=== PATIENT | male | born 1950 | race Caucasian/White ===

== ENCOUNTER 2024-04-05 21:45 | Inpatient (IN) | payer MEDICARE, MEDICAID ==
[~2024-04-05] VITALS: Ht 177.8 cm; Wt 84.4 kg
[2024-04-05 21:50] VITALS: PULSE 114; RESP 22; O2SAT 97
[2024-04-05] MEDS ORDERED: 0.9% SODIUM CHLORIDE 10 ML SYRINGE IVP PRN (22:00)
[2024-04-05 22:11] LABS: BASOPHILS % (AUTO) 0.2 % (0.0-2.0); EOSINOPHILS % (AUTO) 1.1 % (1.0-6.0); HEMATOCRIT 42.3 % (41-53); HEMOGLOBIN 13.7 g/dL (13.5-17.5); LYMPHOCYTES # (AUTO) 2.5 K/uL (1.0-4.8); LYMPHOCYTES % (AUTO) 20.8 % (22.0-44.0); MEAN CORPUSCULAR HEMOGLOBIN 28.3 pg (26.0-34.0); MEAN CORPUSCULAR HGB CONC 32.3 G/dL (31.0-37.0); MEAN CORPUSCULAR VOLUME 88 fL (80-100); MONOCYTES # (AUTO) 0.6 K/uL (0.1-1.0); NEUTROPHILS % (AUTO) 72.9 % (40.0-70.0); PLATELET COUNT (AUTO) 158 K/uL (150-450); RED BLOOD CELL COUNT(AUTO) 4.83 MIL/uL (4.50-5.90); RED CELL DISTRIBUTION WIDTH 15.7 % (11.5-14.5); WHITE BLOOD COUNT (AUTO) 12.3 K/uL (4.5-11.0)
[2024-04-05 22:13] LABS: COVID AG,FIA SOURCE NASAL SWAB
[2024-04-05] MEDS ORDERED: ONDANSETRON HCL 4 MG/2 ML VIAL IVP PRN (22:15)
[2024-04-05 22:18] LABS: ANION GAP 8 mmol/L (8-16); CALCIUM, TOTAL 8.8 mg/dL (8.8-10.5); CARBON DIOXIDE 31 mmol/L (22-29); CHLORIDE 105 mmol/L (98-107); CREATININE 1.04 mg/dL (0.60-1.30); GLOMERULAR FILTR. RATE CALC > 60 mL/min (>60); GLUCOSE,RANDOM 133 mg/dL (70-110); POTASSIUM 4.1 mmol/L (3.5-5.1); SODIUM SERUM 144 mmol/L (136-145); UREA NITROGEN, BLOOD 18 mg/dL (7-18)
[2024-04-05 22:22] LABS: PROTHROMBIN TIME 16.7 SEC (9.4-11.6)
[2024-04-05 22:25] LABS: ALANINE AMINOTRANSFERASE 15 U/L (12-78); ALBUMIN 3.2 g/dL (3.4-5.0); ALKALINE PHOSPHATASE 88 U/L (46-116); ASPARTATE AMINOTRANSFERASE 16 U/L (15-37); BILIRUBIN,TOTAL 0.5 mg/dL (0.1-1.0); TOTAL PROTEIN, SERUM 7.8 g/dL (6.4-8.2)
[2024-04-05 22:26] LABS: TROPONIN I-HIGH SENSITIVITY 7 ng/L (<76)
[2024-04-05] MEDS: SODIUM CHLORIDE 0.9% 2,350 ML IV ONE (22:27)
[2024-04-05] MEDS: CefTRIAXone 1 GM/DEXTROSE 50 ML IV ONE (22:28)
[2024-04-05 22:37] LABS: SARS-COV2 (COVID) ANTIGEN,FIA Negative (Negative)
[2024-04-05 22:40] LABS: INFLUENZA TYPE A NEGATIVE FOR TYPE A (NEGATIVE); INFLUENZA TYPE B NEGATIVE FOR TYPE B (NEGATIVE)
[2024-04-05 22:41] LABS: B-TYPE NATRIURETIC PEPTIDE 37 pg/mL (0-100)
[2024-04-05] MEDS: ACETAMINOPHEN 325 MG TABLET PO PRN (23:11)
[2024-04-05 23:12] LABS: ABG BASE EXCESS -1.2 mmol/L (-2.0-3.0); ABG CARBOXYHEMOGLOBIN 0.3 % (0.5-1.5); ABG HCO3 23.7 mmol/L (21.0-28.0); ABG METHEMOGLOBIN 0.1 % (0.0-1.5); ABG OXYGEN CONTENT 18.6 mL/dL (15.0-23.0); ABG OXYGEN SATURATION 99.3 % (94.0-98.0); ABG OXYHEMOGLOBIN 98.9 % (94.0-98.0); ABG PCO2 45 mmHg (32.0-48.0); ABG PH 7.355 (7.350-7.450); ABG TOTAL HEMOGLOBIN 13.1 G/dL (13.5-17.5); ALLEN TEST, BLOOD GAS Positive; PO2, ARTERIAL BG 189.9 mmHg (83.0-108.0); SITE, BLOOD GAS LFT RADIAL; SOURCE, BLOOD GAS ARTERIAL; TEMPERATURE, FAHRENHEIT, BG 103.1 FAHREN (96.0-98.6)
[2024-04-05 23:13] LABS: ABG A-A DIFF O2 256.3 mmHg (10-20.0); INSPIRATORY TIME, BG 0.9 SEC; O2 DEVICE,BLOOD GAS BIPAP (ROOM AIR)
[2024-04-05] MEDS: ALBUTEROL SULFATE 2.5 MG/0.5 ML NEB SOLUTION NEB ONE (23:26)
[2024-04-05] MEDS: IPRATROPIUM BROMIDE 0.5 MG/2.5 ML NEB SOLUTION NEB ONE (23:27)
[2024-04-05 23:30] VITALS: PULSE 101; RESP 21; O2SAT 97
[2024-04-05 23:45] VITALS: PULSE 113; RESP 24; O2SAT 97
[2024-04-06] VITALS (23 sets, daily range): BP systolic 97–153; BP diastolic 57–81; PULSE 44–129; RESP 16–36; TEMP 97.6–100; O2SAT 84–100
[2024-04-06] MEDS: HEPARIN SODIUM,PORCINE 5,000 UNITS/ML VIAL SQ SCH (00:14)
[2024-04-06] MEDS: VANCOMYCIN 1.5 GM/WATER(PEG) 300 ML IV ONE (00:15)
[2024-04-06] MEDS: MORPHINE SULFATE 4 MG/ML SYRINGE IVP ONE (00:52)
[2024-04-06] MEDS: ASPIRIN 300 MG RECTAL SUPPOSITORY PR ONE (00:52)
[2024-04-06] MEDS ORDERED: SODIUM CHLORIDE 0.9% 500 ML IV ONE ×2 (04:52→15:14)
[2024-04-06] MEDS: PIPERACILLIN/TAZO 3.375 GM/D5W 50 ML IV SCH (04:55)
[2024-04-06] MEDS ORDERED: INFLUENZA VIRUS VACCINE TVS (6MO+) 2024-25/PF 45 MCG/0.5 ML SYRINGE IM. ONE (06:30)
[2024-04-06 06:52] LABS: HEMATOCRIT 35.6 % (41-53); HEMOGLOBIN 11.7 g/dL (13.5-17.5); MEAN CORPUSCULAR HEMOGLOBIN 28.5 pg (26.0-34.0); MEAN CORPUSCULAR HGB CONC 32.8 G/dL (31.0-37.0); MEAN CORPUSCULAR VOLUME 87 fL (80-100); PLATELET COUNT (AUTO) 139 K/uL (150-450); RED CELL DISTRIBUTION WIDTH 15.5 % (11.5-14.5); WHITE BLOOD COUNT (AUTO) 13.1 K/uL (4.5-11.0)
[2024-04-06 07:21] LABS: ANION GAP 9 mmol/L (8-16); CALCIUM, TOTAL 7.8 mg/dL (8.8-10.5); CARBON DIOXIDE 26 mmol/L (22-29); CHLORIDE 107 mmol/L (98-107); CREATININE 0.97 mg/dL (0.60-1.30); GLOMERULAR FILTR. RATE CALC > 60 mL/min (>60); GLUCOSE,RANDOM 144 mg/dL (70-110); POTASSIUM 3.8 mmol/L (3.5-5.1); SODIUM SERUM 142 mmol/L (136-145); UREA NITROGEN, BLOOD 18 mg/dL (7-18)
[2024-04-06 07:24] LABS: BAND NEUTROPHILS % (MANUAL) 14 % (0-5); LYMPHOCYTES % (MANUAL) 6 % (22-44); MONOCYTES % (MANUAL) 4 % (2-9); SEGMENTED NEUTROPHILS % 76 % (40-70); TOTAL CELLS COUNTED 100
[2024-04-06] MEDS: VANCOMYCIN 1GM/WATER(PEG/NADA) 200 ML IV SCH (09:25)
[2024-04-06] MEDS ORDERED: SODIUM CHLORIDE 0.9% 250 ML IV ONE (10:30)
[2024-04-06] MEDS: MethylPREDNISolone SOD SUCC 125 MG/2 ML VIAL IVP SCH (12:39)
[2024-04-06] MEDS: ALBUTEROL SULFATE 2.5 MG/0.5 ML NEB SOLUTION NEB PRN (12:44)
[2024-04-06] MEDS: IPRATROPIUM BROMIDE 0.5 MG/2.5 ML NEB SOLUTION NEB PRN (12:44)
[2024-04-06] MEDS ORDERED: IPRATROPIUM BROMIDE 0.5 MG/2.5 ML NEB SOLUTION NEB PRN (12:45)
[2024-04-06] MEDS: MORPHINE SULFATE 2 MG/ML SYRINGE IVP ONE (13:05)
[2024-04-06 13:13] LABS: ABG BASE EXCESS -5.6 mmol/L (-2.0-3.0); ABG CARBOXYHEMOGLOBIN 0.6 % (0.5-1.5); ABG HCO3 17.5 mmol/L (21.0-28.0); ABG METHEMOGLOBIN 0.1 % (0.0-1.5); ABG OXYGEN CONTENT 17.7 mL/dL (15.0-23.0); ABG OXYGEN SATURATION 90.1 % (94.0-98.0); ABG OXYHEMOGLOBIN 89.5 % (94.0-98.0); PO2, ARTERIAL BG 79.4 mmHg (83.0-108.0); SOURCE, BLOOD GAS ARTERIAL; TEMPERATURE, FAHRENHEIT, BG 98.2 FAHREN (96.0-98.6)
[2024-04-06 13:15] LABS: ABG PCO2 118 mmHg (32.0-48.0); ABG PH 6.963 (7.350-7.450)
[2024-04-06 13:16] LABS: ABG A-A DIFF O2 515.9 mmHg (10-20.0); ALLEN TEST, BLOOD GAS Positive; O2 DEVICE,BLOOD GAS BIPAP (ROOM AIR); SITE, BLOOD GAS LFT RADIAL; SPONTANEOUS VT, BG 233 ml
[2024-04-06] MEDS: LORazepam 2 MG/ML VIAL IVP ONE (13:31)
[2024-04-06] MEDS: IPRATROPIUM BROMIDE 0.5 MG/2.5 ML NEB SOLUTION NEB SCH (13:50)
[2024-04-06] MEDS: ALBUTEROL SULFATE 2.5 MG/0.5 ML NEB SOLUTION NEB SCH (13:50)
[2024-04-06 16:05] LABS: ABG BASE EXCESS -5.4 mmol/L (-2.0-3.0); ABG CARBOXYHEMOGLOBIN 0.7 % (0.5-1.5); ABG HCO3 20.3 mmol/L (21.0-28.0); ABG METHEMOGLOBIN 0.3 % (0.0-1.5); ABG OXYGEN CONTENT 17.5 mL/dL (15.0-23.0); ABG OXYGEN SATURATION 98.1 % (94.0-98.0); ABG OXYHEMOGLOBIN 97.1 % (94.0-98.0); ABG PCO2 41 mmHg (32.0-48.0); ABG PH 7.324 (7.350-7.450); ABG TOTAL HEMOGLOBIN 12.7 G/dL (13.5-17.5); PO2, ARTERIAL BG 103.9 mmHg (83.0-108.0); SITE, BLOOD GAS LFT RADIAL; SOURCE, BLOOD GAS ARTERIAL; TEMPERATURE, FAHRENHEIT, BG 98.1 FAHREN (96.0-98.6)
[2024-04-06 16:06] LABS: ABG A-A DIFF O2 569.3 mmHg (10-20.0); ALLEN TEST, BLOOD GAS Positive; O2 DEVICE,BLOOD GAS BIPAP (ROOM AIR)
[2024-04-06] MEDS: DEXMEDETOMIDINE HCL 400 MCG in SODIUM CHLORIDE 0.9% 96 ML IV PRN (17:02)
[2024-04-07] VITALS (21 sets, daily range): BP systolic 108–136; BP diastolic 55–83; PULSE 45–64; RESP 16–27; TEMP 97.4–98.5; O2SAT 94–100
[2024-04-07 05:53] LABS: EOSINOPHILS % (AUTO) 0 % (1.0-6.0); HEMATOCRIT 37.6 % (41-53); HEMOGLOBIN 12.5 g/dL (13.5-17.5); LYMPHOCYTES # (AUTO) 0.4 K/uL (1.0-4.8); LYMPHOCYTES % (AUTO) 4.7 % (22.0-44.0); MEAN CORPUSCULAR HGB CONC 33.4 G/dL (31.0-37.0); MEAN CORPUSCULAR VOLUME 87 fL (80-100); MONOCYTES # (AUTO) 0.2 K/uL (0.1-1.0); MONOCYTES % (AUTO) 2.4 % (2.0-9.0); NEUTROPHILS # (AUTO) 7.7 K/uL (1.8-7.7); PLATELET COUNT (AUTO) 123 K/uL (150-450); RED BLOOD CELL COUNT(AUTO) 4.33 MIL/uL (4.50-5.90); RED CELL DISTRIBUTION WIDTH 15.6 % (11.5-14.5); WHITE BLOOD COUNT (AUTO) 8.3 K/uL (4.5-11.0)
[2024-04-07 05:57] LABS: NEUTROPHILS % (AUTO) 92.9 % (40.0-70.0)
[2024-04-07 06:12] LABS: ANION GAP 10 mmol/L (8-16); CALCIUM, TOTAL 8.9 mg/dL (8.8-10.5); CARBON DIOXIDE 25 mmol/L (22-29); CHLORIDE 108 mmol/L (98-107); CREATININE 1.08 mg/dL (0.60-1.30); GLOMERULAR FILTR. RATE CALC > 60 mL/min (>60); GLUCOSE,RANDOM 206 mg/dL (70-110); POTASSIUM 3.9 mmol/L (3.5-5.1); SODIUM SERUM 143 mmol/L (136-145); UREA NITROGEN, BLOOD 22 mg/dL (7-18)
[2024-04-07 06:14] LABS: VANCOMYCIN,RANDOM 19.7 mcg/mL (25.0-50.0)
[2024-04-07] MEDS ORDERED: DEXTROSE 5%-0.45% SODIUM CHL 500 ML IV ONE (16:15)
[2024-04-07] MEDS: DEXTROSE 5%-0.45% SODIUM CHL 500 ML IV ONE (17:08)
[2024-04-08] VITALS (20 sets, daily range): BP systolic 117–146; BP diastolic 62–89; PULSE 46–85; RESP 14–25; TEMP 97.6–98.7; O2SAT 92–100
[2024-04-08] MEDS: ALBUTEROL SULFATE 2.5 MG/0.5 ML NEB SOLUTION NEB PRN (03:52)
[2024-04-08 06:09] LABS: ANION GAP 5 mmol/L (8-16); CALCIUM, TOTAL 8.8 mg/dL (8.8-10.5); CARBON DIOXIDE 28 mmol/L (22-29); CHLORIDE 108 mmol/L (98-107); CREATININE 1.04 mg/dL (0.60-1.30); GLOMERULAR FILTR. RATE CALC > 60 mL/min (>60); GLUCOSE,RANDOM 196 mg/dL (70-110); POTASSIUM 3.4 mmol/L (3.5-5.1); SODIUM SERUM 141 mmol/L (136-145); UREA NITROGEN, BLOOD 19 mg/dL (7-18)
[2024-04-08] MEDS ORDERED: POTASSIUM CHL 10 MEQ/WATER 50 ML IV PRN (15:00)
[2024-04-08] MEDS ORDERED: POTASSIUM CHLORIDE 20 MEQ ER TABLET PO PRN (15:00)
[2024-04-08] MEDS: POTASSIUM CHLORIDE 10% 40 MEQ/30 ML LIQUID UDCUP PO PRN (16:37)
[2024-04-08 22:20] LABS: ANION GAP 7 mmol/L (8-16); CALCIUM, TOTAL 8.5 mg/dL (8.8-10.5); CARBON DIOXIDE 27 mmol/L (22-29); CHLORIDE 108 mmol/L (98-107); CREATININE 1.17 mg/dL (0.60-1.30); GLOMERULAR FILTR. RATE CALC > 60 mL/min (>60); GLUCOSE,RANDOM 182 mg/dL (70-110); POTASSIUM 3.1 mmol/L (3.5-5.1); SODIUM SERUM 142 mmol/L (136-145); UREA NITROGEN, BLOOD 19 mg/dL (7-18)
[2024-04-09] VITALS (17 sets, daily range): BP systolic 131–145; BP diastolic 68–96; PULSE 44–100; RESP 16–23; TEMP 97.5–99.1; O2SAT 92–99
[2024-04-09] MEDS: MethylPREDNISolone SOD SUCC 125 MG/2 ML VIAL IVP SCH (01:10)
[2024-04-09] MEDS ORDERED: SODIUM CHLORIDE 0.9% 250 ML IV ONE ×3 (04:07→22:32)
[2024-04-09] MEDS ORDERED: SODIUM CHLORIDE 0.9% 0 ML ONE (04:07)
[2024-04-09 07:12] LABS: EOSINOPHILS % (AUTO) 0 % (1.0-6.0); HEMATOCRIT 34.1 % (41-53); HEMOGLOBIN 11.4 g/dL (13.5-17.5); LYMPHOCYTES # (AUTO) 0.3 K/uL (1.0-4.8); MEAN CORPUSCULAR HEMOGLOBIN 28.8 pg (26.0-34.0); MEAN CORPUSCULAR HGB CONC 33.5 G/dL (31.0-37.0); MEAN CORPUSCULAR VOLUME 86 fL (80-100); MONOCYTES # (AUTO) 0.2 K/uL (0.1-1.0); MONOCYTES % (AUTO) 2.9 % (2.0-9.0); NEUTROPHILS # (AUTO) 7.8 K/uL (1.8-7.7); PLATELET COUNT (AUTO) 163 K/uL (150-450); RED BLOOD CELL COUNT(AUTO) 3.97 MIL/uL (4.50-5.90); RED CELL DISTRIBUTION WIDTH 15.7 % (11.5-14.5); WHITE BLOOD COUNT (AUTO) 8.4 K/uL (4.5-11.0)
[2024-04-09 07:14] LABS: NEUTROPHILS % (AUTO) 93.1 % (40.0-70.0)
[2024-04-09 07:24] LABS: ANION GAP 5 mmol/L (8-16); CALCIUM, TOTAL 8.6 mg/dL (8.8-10.5); CARBON DIOXIDE 27 mmol/L (22-29); CHLORIDE 109 mmol/L (98-107); CREATININE 0.95 mg/dL (0.60-1.30); GLOMERULAR FILTR. RATE CALC > 60 mL/min (>60); GLUCOSE,RANDOM 218 mg/dL (70-110); POTASSIUM 3.8 mmol/L (3.5-5.1); SODIUM SERUM 141 mmol/L (136-145); UREA NITROGEN, BLOOD 17 mg/dL (7-18)
[2024-04-10] VITALS (8 sets, daily range): BP systolic 131–136; BP diastolic 65–70; PULSE 60–80; RESP 18–20; TEMP 97.7–97.8; O2SAT 93–97
[2024-04-10 07:08] LABS: ANION GAP 6 mmol/L (8-16); CALCIUM, TOTAL 8.3 mg/dL (8.8-10.5); CARBON DIOXIDE 28 mmol/L (22-29); CHLORIDE 105 mmol/L (98-107); CREATININE 0.94 mg/dL (0.60-1.30); GLOMERULAR FILTR. RATE CALC > 60 mL/min (>60); GLUCOSE,RANDOM 190 mg/dL (70-110); POTASSIUM 3.4 mmol/L (3.5-5.1); SODIUM SERUM 139 mmol/L (136-145); UREA NITROGEN, BLOOD 13 mg/dL (7-18); VANCOMYCIN,RANDOM 19.1 mcg/mL (25.0-50.0)
[2024-04-10] MEDS ORDERED: ALBU2.5V39 NEB (13:49)
[2024-04-10] MEDS ORDERED: IPRA0.2S49 NEB (13:49)
[2024-04-10] MEDS ORDERED: PRED-554 PO (13:50)
[2024-04-10] MEDS ORDERED: APIX5TAB PO (13:52)
[2024-04-10] MEDS ORDERED: ACET-2247 PO (13:52)
[2024-04-10] MEDS ORDERED: AMLO-257 PO (13:53)
[2024-04-10] MEDS ORDERED: AMOX-457 PO (13:53)
== END 2024-04-10 16:26 | disposition hospice, inpatient (51) | DRG 871 ==
LOC: EMS 21:45 → EDH 22:11 → 5S 04-06 02:11 → ICU 04-06 14:39 → 5S 04-09 02:50 → 4E 04-09 23:48
PROVIDERS: ADMIT Internal Medicine; ATTEND Internal Medicine
PROC: 5A09457 Assistance with Respiratory Ventilation, 24-96 Consecutive Hours, Continuous Positive Airway Pressure (ICD-10-PCS; 2024-04-05)
PROC: 5A09357 Assistance with Respiratory Ventilation, Less than 24 Consecutive Hours, Continuous Positive Airway Pressure (ICD-10-PCS; principal; 2024-04-07)
PROC: 5A09357 Assistance with Respiratory Ventilation, Less than 24 Consecutive Hours, Continuous Positive Airway Pressure (ICD-10-PCS; 2024-04-08)
PROC: 5A09357 Assistance with Respiratory Ventilation, Less than 24 Consecutive Hours, Continuous Positive Airway Pressure (ICD-10-PCS; 2024-04-09)
DX: A41.9 Sepsis, unspecified organism (principal); J69.0 Pneumonitis due to inhalation of food and vomit; J96.22 Acute and chronic respiratory failure with hypercapnia; J96.21 Acute and chronic respiratory failure with hypoxia; J90 Pleural effusion, not elsewhere classified; Z20.822 Contact with and (suspected) exposure to COVID-19; Z66 Do not resuscitate; I10 Essential (primary) hypertension; F32.9 Major depressive disorder, single episode, unspecified; R13.10 Dysphagia, unspecified; E66.9 Obesity, unspecified; J98.4 Other disorders of lung; E78.5 Hyperlipidemia, unspecified; D64.9 Anemia, unspecified; R62.7 Adult failure to thrive; Z79.01 Long term (current) use of anticoagulants; Z79.899 Other long term (current) drug therapy; Z86.718 Personal history of other venous thrombosis and embolism; I69.391 Dysphagia following cerebral infarction; Z68.26 Body mass index [BMI] 26.0-26.9, adult
CPT/HCPCS: 36600; 51702; 71045; 71250; 80048; 80053; 80202; 82805; 83605; 83735; 83880; 84145; 84484; 85025; 85610; 87040; 87081; 87481; 87804; 92610; 93005; 94640; 94660; 99291; G0378; J0696; J1644; J2060; J2270; J2543; J2919; J7040; J7050; J7060; 36415-L1; 36415-TC; J7613